=== PATIENT | female | born 1965 | race Two or more races ===

== ENCOUNTER 2016-12-31 09:45 | Emergency (ER) | payer MEDICAID ==
--- NOTE | 2016-12-31 10:35 | ED Physician Chart ---
ED Chief Complaint/HPI - Patient Information Date Seen:: 12/31/16 Time Seen:: 10:10 Chief Complaint:: dog bite History of Present Illness:: This morning at 07 30 patient was bitten by her own copy on the right thumb and right index finger. No other injuries. Patient is right-hand dominant. Patient states she is not . Allergies:: Allergies Allergy/AdvReac Type Severity Reaction Status Date / Time amoxicillin [From Augmentin] Allergy Verified 12/31/16 09:49 clavulanic acid Allergy Verified 12/31/16 09:49 [From Augmentin] Vitals:: Vital Signs - 8 hr 12/31/16 12/31/16 09:56 10:23 Temp 97.8 F 98.2 F HR 81 80 RR 16 16 BP 127/79 124/56 O2 Sat % 96 98 Historian:: Patient Review:: Nurse's Note Reviewed ED Review of Systems - Review of Systems General/Constitutional: No fever, No chills Skin: Skin lesions Head: No headache Eyes: No loss of vision ENT: No earache Neck: No neck pain Cardio Vascular: No chest pain Pulmonary: No SOB GI: No nausea, No vomiting G/U: No dysuria Musculoskeletal: No bone or joint pain Endocrine: No polyuria Psychiatric: Prior psych history Hematopoietic: No bruising Allergic/Immuno: No urticaria Neurological: No syncope, No focal symptoms ED Past Medical History - Past Medical History Past Medical History: HTN, Dyslipidemia, Other (hyperlipidemia) Family History: Diabetes Melitus, HTN Social History: Non Smoker, No Alcohol Surgical History: None Psychiatricy History: Bipolar Medication: Reviewed Family Medical History - Family Member Mother Living Status: Other Medical History: ms ED Physical Exam - Physical Examination General/Constitutional: Well-developed, well-nourished, Alert, No distress Head: Atraumatic Eyes: Lids, conjuctiva normal Other Skin comments:: Right thumb: 28 mm abrasions of the dorsal distal segment; right index finger: 6 mm laceration of palmar side of right index finger. ENMT: External ears, nose nl, Oropharynx nl Neck: No nuchal rigidity Respiratory: Nl effort/Exclusion, Clear to Auscultation, No Wheeze/Rhonchi/Rales Cardio Vascular: RRR, No murmur, gallop, rubs GI: No tenderness/rebounding/guarding, No organomegaly, No hernia : No CVA tenderness ED Assessment - Procedures Procedures:: Laceration right index finger placed under cool running water from more than 1 minute. ED Septic Shock - . Is Septic Shock (SBP<90, OR Lactate>4 mmol\L) present?: No - <6hrs of presentation: Vital Signs: Vital Signs - 8 hr 12/31/16 12/31/16 09:56 10:23 Temp 97.8 F 98.2 F HR 81 80 RR 16 16 BP 127/79 124/56 O2 Sat % 96 98 ED Reassessment (Disposition) - Reassessment Reassessment Condition:: Unchanged - Diagnosis Diagnosis:: Dogbite right thumb and right index finger - Aftercare/Follow up Instructions Aftercare/Follow-Up Instructions:: Refer to Discharge Instructions Medication Prescribed:: Clindamycin 300 mg 4 times a day for 4 days and Levaquin 500 mg daily for 4 days. - Patient Disposition Discharge/Transfer:: Home Condition at Disposition:: Stable, Unchanged ED Discharge Plan - Patient Disposition Instructions: Animal Bite
== END 2016-12-31 10:40 | disposition home or self-care (01) ==
LOC: ER 09:45
DX: S61.051A Open bite of right thumb without damage to nail, initial encounter (principal); S61.250A Open bite of right index finger without damage to nail, initial encounter; I10 Essential (primary) hypertension; E78.5 Hyperlipidemia, unspecified; W54.0XXA Bitten by dog, initial encounter; Y93.89 Activity, other specified; Y92.89 Other specified places as the place of occurrence of the external cause; Y99.8 Other external cause status
CPT/HCPCS: Z7502; Z7610

== ENCOUNTER 2017-02-10 06:14 | Emergency (ER) | payer MEDICAID ==
--- NOTE | 2017-02-10 08:15 | ED Physician Chart ---
ED Chief Complaint/HPI - Patient Information Date Seen:: 02/10/17 Time Seen:: 07:55 Chief Complaint:: chest pain History of Present Illness:: Patient was started on clindamycin 300 mg 4 times a day for dog bite of the dorsum of her right hand 6 days ago.. She obtained the prescription about 2 hours after the dog bite so it was for prophylaxis. After starting the clindamycin she developed throat tightness, sore throat when she swallows and substernal chest pain. Allergies:: Allergies Allergy/AdvReac Type Severity Reaction Status Date / Time amoxicillin [From Augmentin] Allergy Verified 12/31/16 09:49 clavulanic acid Allergy Verified 12/31/16 09:49 [From Augmentin] Vitals:: Vital Signs - 8 hr 02/10/17 06:20 Temp 97.3 F HR 72 RR 16 BP 128/76 O2 Sat % 98 Historian:: Patient Review:: Nurse's Note Reviewed ED Review of Systems - Review of Systems General/Constitutional: No fever, No chills Skin: No skin lesions Head: No headache Eyes: No loss of vision ENT: No earache, Sore throat Neck: No neck pain Cardio Vascular: Chest pain Pulmonary: No SOB, No cough GI: No nausea, No vomiting, No diarrhea G/U: No dysuria, No hematuria, No nacturia Musculoskeletal: No bone or joint pain Endocrine: No polyuria, No polydipsia Psychiatric: No prior psych history, No depression, No anxiety Allergic/Immuno: No urticaria, No angioedema Neurological: No syncope, No focal symptoms ED Past Medical History - Past Medical History Past Medical History: HTN, Dyslipidemia, Other (hyperlipidemia) Family History: Diabetes Melitus Social History: Other (patient quit smoking 20 months ago) Surgical History: other (patient is scheduled for hysterectomy on 02/19/2017) Psychiatricy History: None Medication: Reviewed Family Medical History - Family Member Mother Living Status: Grandmother Hx Family Diabetes: Yes ED Physical Exam - Physical Examination General/Constitutional: Well-developed, well-nourished, Alert, No distress Head: Atraumatic Eyes: Lids, conjuctiva normal, PERRL Skin: No rash, No ecchymosis Other Skin comments:: Dog bites dorsum right hand show no signs of infection ENMT: External ears, nose nl, TM canals nl, Nasal exam nl, Oropharynx nl, Tonsils nl Other ENMT comments:: many teeth missing Neck: No nuchal rigidity Respiratory: Nl effort/Exclusion, Clear to Auscultation, No Wheeze/Rhonchi/Rales Cardio Vascular: RRR, No murmur, gallop, rubs GI: No tenderness/rebounding/guarding : No CVA tenderness Extremities: No tenderness or effusion ED Labs/Radiology/EKG Results - Lab Results Results: EKG showed normal sinus rhythm; normal axis; rate 67 ED Assessment - Assessment General Assessment: Patient no longer needs to take clindamycin which was prescribed for prophylaxis. There are no signs of infection. Patient's sore throat and substernal chest pain are most likely side effects of the clindamycin. Patient told to take Maalox or Mylanta for any continuing discomfort. ED Septic Shock - . Is Septic Shock (SBP<90, OR Lactate>4 mmol\L) present?: No - <6hrs of presentation: Vital Signs: Vital Signs - 8 hr 02/10/17 06:20 Temp 97.3 F HR 72 RR 16 BP 128/76 O2 Sat % 98 ED Reassessment (Disposition) - Reassessment Reassessment Condition:: Unchanged - Diagnosis Diagnosis:: Medication side effect - Aftercare/Follow up Instructions Aftercare/Follow-Up Instructions:: Refer to Discharge Instructions - Patient Disposition Discharge/Transfer:: Home Condition at Disposition:: Stable, Unchanged ED Discharge Plan - Patient Disposition Instructions: Esophagitis
== END 2017-02-10 08:10 | disposition home or self-care (01) ==
LOC: ER 06:14
DX: R07.89 Other chest pain (principal); T36.8X5A Adverse effect of other systemic antibiotics, initial encounter; J02.9 Acute pharyngitis, unspecified; I10 Essential (primary) hypertension; E78.5 Hyperlipidemia, unspecified; Z87.891 Personal history of nicotine dependence; Y92.89 Other specified places as the place of occurrence of the external cause
CPT/HCPCS: 93005; Z7502